=== PATIENT | male | born 1950 | race Caucasian/White ===

== ENCOUNTER 2021-06-17 11:55 | Emergency (ER) | payer MEDICARE, OTHER ==
--- NOTE | 2021-06-17 12:58 | XRAY Report ---
PROCEDURE: Ankle 3 View RT INDICATIONS: Trauma TECHNIQUE: 3 views of the ankle were acquired. COMPARISON: None FINDINGS: Bones: There is a comminuted fracture within the calcaneus most severe in the midportion. However, fr acture lucencies also extend into the anterior and posterior aspects. There is loss of calcaneal heig ht. Ankle mortise is normally aligned. No suspicious bony lesions. Soft tissues: No tibiotalar joint effusion. Achilles tendon appears normal. IMPRESSION: Comminuted calcaneal fracture as above. Reviewed by: Cecy Pyle MD on 06/17/2021 12:57 PM PDT Approved by: Cecy Pyle MD on 06/17/2021 12:57 PM PDT Station ID: [id number]
--- NOTE | 2021-06-17 15:14 | ED Physician Documentation ---
PD HPI LOWER EXT INJURY - Stated complaint Stated Complaint: R ANKLE PX - Chief complaint Chief Complaint: Ext Problem - History obtained from History obtained from: Patient - History of Present Illness PD HPI LOW EXT INJURY LOCATION: Right, Foot (heel) Type of injury: Fall Where injury occurred: Home Pain level max: 8 Pain level now: 4 Improved by: Rest Worsened by: Moving, Palpating Associated symptoms: No: Weakness, Numbness, Tingling, Swelling Contributing factors: No: Anticoagulated Recently seen: Not recently seen - Additional information Additional information: 71-year-old male fell off of a ladder approximately 4 feet and landed on his right heel. Complains of right heel pain, worse with walking, better with rest. No head, neck, back pain. Not anticoagulated. Review of Systems Constitutional: denies: Fever, Chills GI: denies: Abdominal Pain, Vomiting, Diarrhea Skin: denies: Rash Musculoskeletal: denies: Neck pain, Back pain Neurologic: denies: Headache, Head injury PD PAST MEDICAL HISTORY - Past Medical History Past Medical History: Yes - Allergies Allergies/Adverse Reactions: Allergies Allergy/AdvReac Type Severity Reaction Status Date / Time Penicillins AdvReac Hives Verified 06/17/21 12:08 - Social History Does the pt smoke?: No Smoking Status: Current every day smoker Does the pt drink ETOH?: No Does the pt have substance abuse?: No - Immunizations Immunizations are current?: No - POLST Patient has POLST: No PD ED PE NORMAL - Vitals Vital signs reviewed: Yes - General General: Alert and oriented X 3, No acute distress - HEENT HEENT: Atraumatic, PERRL, Moist mucous membranes - Neck Neck: Supple, no meningeal sign, No bony TTP - Cardiac Cardiac: RRR, Strong equal pulses - Respiratory Respiratory: No respiratory distress, Clear bilaterally - Abdomen Abdomen: Soft, Non tender, Non distended - Back Back: No spinal TTP - Derm Derm: Warm and dry - Extremities Extremities: Other (Tender to palpation over the right calcaneus. No tenderness over the remainder of the foot, ankle or lower extremity. Full range of motion of the bilateral lateral knees and hips without pain. Left leg is normal. NVI) - Neuro Neuro: Alert and oriented X 3 Results - Vitals Vitals: Vital Signs - 24 hr 06/17/21 06/17/21 12:02 15:31 Temperature 36.3 C L Heart Rate 81 78 Respiratory 15 16 Rate Blood Pressure 182/94 H 182/102 H O2 Saturation 99 100 Oxygen O2 Source Room air - Rads (name of study) Right ankle x-ray Radiology: Final report received, EMP read contemporaneously, See rad report (Comminuted calcaneus fracture) Procedures - Splint (location) R LE Splint applied by: Physician Type of splint: Fiberglass, Short leg, Posterior Other: Patient tolerated well, No complications, Neurovascular intact, Crutches provided PD MEDICAL DECISION MAKING - ED course Complexity details: reviewed results, re-evaluated patient, considered differential, d/w patient ED course: Patient placed in a bulky [place] splint for the calcaneus fracture, given crutches. We will have him follow-up with orthopedics. Declines pain medication here or for home. Patient counseled regarding signs and symptoms for which I believe and urgent re-evaluation would be necessary. Patient with good understanding of and agreement to plan and is comfortable going home at this time This document was made in part using voice recognition software. While efforts are made to proofread this document, sound alike and grammatical errors may occur. Departure - Departure Disposition: 01 Home, Self Care Clinical Impression: Calcaneus fracture, right Qualifiers: Encounter type: initial encounter Calcaneus location: unspecified portion of calcaneus Fracture type: closed Fracture alignment: nondisplaced Qualified Code(s): S92.001A - Unspecified fracture of right calcaneus, initial encounter for closed fracture Condition: Good Instructions: Calcaneus Fx Repair Follow-Up: Elias Fernandez MD [Provider Admit Priv/Credential] - Within 1 week Comments: Please follow-up with Dr. Fernandez for further care. Return if you worsen. Keep the splint in place until seen by Dr. Fernandez. You are to be nonweightbearing on the right lower extremity. Discharge Date/Time: 06/17/21 15:33
[2021-06-17 15:33] VITALS: BP 182/102
== END 2021-06-17 15:33 | disposition home or self-care (01) ==
LOC: ED 11:55
DX: S92.001A Unspecified fracture of right calcaneus, initial encounter for closed fracture (principal); W11.XXXA Fall on and from ladder, initial encounter; Y92.009 Unspecified place in unspecified non-institutional (private) residence as the place of occurrence of the external cause; F17.200 Nicotine dependence, unspecified, uncomplicated
CPT/HCPCS: 29515

== ENCOUNTER 2021-06-24 09:45 | Outpatient (CLI) | payer MEDICARE ==
--- NOTE | 2021-06-24 11:55 | XRAY Report ---
PROCEDURE: Ankle 3 View RT INDICATIONS: FRACTURE OF RIGHT CALCANEUS TECHNIQUE: 3 views of the ankle were acquired. COMPARISON: X-ray ankle 06/17/2021 FINDINGS: Bones: Comminuted appearance of calcaneal fracture is again identified most prominently affecting the mid and anterior portions. There is stable alignment without additional height loss.. Ankle mortise is normally aligned. No suspicious bony lesions. Soft tissues: No tibiotalar joint effusion. Achilles tendon appears normal. IMPRESSION: Stable appearance of comminuted calcaneal fracture. Reviewed by: Cecy Pyle MD on 06/24/2021 11:54 AM PDT Approved by: Cecy Pyle MD on 06/24/2021 11:54 AM PDT Station ID: [id number]
== END 2021-06-24 23:59 | disposition home or self-care (01) ==
LOC: DI.N 09:45
PROVIDERS: ATTEND Orthopaedic Surgery
DX: S92.001A Unspecified fracture of right calcaneus, initial encounter for closed fracture (principal)

== ENCOUNTER 2021-06-30 11:41 | Outpatient (CLI) | payer MEDICARE ==
--- NOTE | 2021-06-30 14:45 | CT Report ---
PROCEDURE: LOWER EXTREMITY WO - RT INDICATIONS: FX OF RIGHT CALCANEUS TECHNIQUE: Noncontrast 3 mm axial sections acquired of the right ankle, with coronal and sagittal reformats. COMPARISON: Right ankle radiographs dated 06/24/2021 FINDINGS: Image quality: Excellent. Bones: Severely comminuted fracture of the calcaneus again noted. There is mild to moderate overall height loss. Diffuse osteopenia is present. Remaining osseous structures appear grossly intact. Soft tissues: Associated hindfoot soft tissue swelling. Scattered vascular calcifications IMPRESSION: Severely comminuted calcaneal fracture with [id number] height loss. Associated soft tissue swel ling. Diffuse osteopenia Reviewed by: Jose Herrera MD on 06/30/2021 2:44 PM PDT Approved by: Jose Herrera MD on 06/30/2021 2:44 PM PDT Station ID: [id number]
== END 2021-06-30 11:42 | disposition home or self-care (01) ==
LOC: DI 11:41
PROVIDERS: ATTEND Orthopaedic Surgery
DX: S92.001A Unspecified fracture of right calcaneus, initial encounter for closed fracture (principal)

== ENCOUNTER 2021-07-29 10:43 | Outpatient (CLI) | payer MEDICARE ==
--- NOTE | 2021-08-07 02:21 | XRAY Report ---
PROCEDURE: Ankle 3 View RT INDICATIONS: FRACTURE OF RIGHT CALCANEUS TECHNIQUE: 3 views of the ankle were acquired. Images became available for interpretation on . COMPARISON: X-ray foot 07/29/2021, CT lower extremity 06/30/2021, x-ray ankle 06/24/2021 FINDINGS: Bones: Stable alignment of comminuted calcaneal fracture. Fracture lucencies are slightly less promin ent when compared to prior exam. Ankle mortise is normally aligned. No suspicious bony lesions. Soft tissues: No tibiotalar joint effusion. Achilles tendon appears normal. IMPRESSION: Less prominent fracture lucencies with stable alignment of comminuted calcaneal fracture . Reviewed by: Cecy Pyle MD on 08/07/2021 12:55 AM PDT Approved by: Cecy Pyle MD on 08/07/2021 12:55 AM PDT Station ID: [id number]
--- NOTE | 2021-08-07 02:22 | XRAY Report ---
PROCEDURE: Foot 3 View RT INDICATIONS: FRACTURE OF RIGHT CALCANEUS TECHNIQUE: 3 views of the foot were acquired. Images became available for review on 08/06/2021. COMPARISON: X-ray ankle 06/24/[address] lower extremity 06/30/2021 FINDINGS: Bones: Comminuted fracture of calcaneus is present with decreased appearance of fracture lucency prom inence. Alignment is stable. No suspicious bony lesions. Soft tissues: No tibiotalar joint effusion. Achilles tendon appears normal. IMPRESSION: Stable alignment and interval healing of calcaneal fracture. Reviewed by: Cecy Pyle MD on 08/07/2021 1:53 AM PDT Approved by: Cecy Pyle MD on 08/07/2021 1:53 AM PDT Station ID: [id number]
== END 2021-07-29 10:44 | disposition home or self-care (01) ==
LOC: DI.N 10:43
PROVIDERS: ATTEND Orthopaedic Surgery
DX: S92.061A Displaced intraarticular fracture of right calcaneus, initial encounter for closed fracture (principal)

== ENCOUNTER 2021-09-02 10:30 | Outpatient (CLI) | payer MEDICARE ==
--- NOTE | 2021-09-02 14:33 | XRAY Report ---
PROCEDURE: Foot 3 View RT INDICATIONS: Displaced intra-articular calcaneal fracture TECHNIQUE: 4 views of the foot were acquired. COMPARISON: 07/29/2021 FINDINGS: No significant change in appearance of comminuted and displaced/depressed calcaneal fractures. There is heterogenous lucency and sclerosis in the calcaneus consistent with ongoing healing activity. Ther e is new lucency in numerous tarsals and metatarsals consistent with disuse osteopenia. IMPRESSION: Unchanged alignment of calcaneal fractures. Reviewed by: Asaf Nguyen MD on 09/02/2021 1:32 PM [place] Approved by: Asaf Nguyen MD on 09/02/2021 1:32 PM [facility] Station ID: [id number]
== END 2021-09-02 23:59 | disposition home or self-care (01) ==
LOC: DI.N 10:30
PROVIDERS: ATTEND Orthopaedic Surgery
DX: S92.061D Displaced intraarticular fracture of right calcaneus, subsequent encounter for fracture with routine healing (principal)